=== PATIENT | male | born 1970 | race Caucasian/White ===

== ENCOUNTER 2017-06-19 13:12 | Emergency (ER) | payer SELFPAY ==
[~2017-06-19] VITALS: Ht 175.3 cm; Wt 89.0 kg
[2017-06-19] MEDS ORDERED: KETOROLAC 60MG/2ML VIAL IM ONE (14:15)
[2017-06-19] MEDS ORDERED: IBUPROFEN 800MG TABLET PO ONE (14:30)
[2017-06-19] MEDS ORDERED: ONDANSETRON HCL 4MG TABLET PO ONE (14:45)
[2017-06-19 15:00] LABS: BG BASE EXCESS 2.2 mmol/L (-2.0-2.0); BG FRACTION INSPIRED OXYGEN 21; BG HCO3 ACT 29.2 mmol/L (22.0-26.0); BG METHEMOGLOBIN 0.3 % (0.0-1.5); BG OXYGEN SATURATION 50.9 % (92.0-98.5); BG OXYHEMOGLOBIN 49.7 % (94.0-97.0); BG PCO2 54.8 mmHg (35.0-45.0); BG PH 7.345 (7.350-7.450); BG PO2 < 30.3 mmHg (75.0-100.0); BG SAMPLE SITE OTHER; BG TOTAL HEMOGLOBIN 15.8 g/dL (12.0-18.0); BG VENT MODE ROOM AIR
[2017-06-19 16:02] VITALS: BP 137/82
== END 2017-06-19 16:03 | disposition home or self-care (01) ==
LOC: ER 13:23
DX: R51 Headache (principal); I10 Essential (primary) hypertension
CPT/HCPCS: 36415; 36600; 82374; 82375; 82805; 99284; Q0162; Z7610; J1885

== ENCOUNTER 2017-06-20 01:14 | Emergency (ER) | payer OTHER ==
[~2017-06-20] VITALS: Ht 177.8 cm; Wt 98.0 kg
[2017-06-20] MEDS ORDERED: METOCLOPRAMIDE HCL 10MG/2ML VIAL IV ONE (03:15)
[2017-06-20 04:00] VITALS: BP 132/70
== END 2017-06-20 04:06 | disposition home or self-care (01) ==
LOC: ER 01:14
DX: R51 Headache (principal); R11.0 Nausea; E78.00 Pure hypercholesterolemia, unspecified; I10 Essential (primary) hypertension; G89.4 Chronic pain syndrome
CPT/HCPCS: 96374; 99284; J2765